=== PATIENT | female | born 2000 | race Asian ===

== ENCOUNTER 2023-12-12 20:47 | Emergency (ER) | payer SELFPAY ==
[~2023-12-12] VITALS: Ht 149.9 cm; Wt 40.8 kg
[2023-12-12 21:31] VITALS: TEMP 98.6
[2023-12-12] MEDS ORDERED: ONDANSETRON 4 MG TAB.RAPDIS ONE (22:13)
[2023-12-12] MEDS ORDERED: MAG HYDROX/AL HYDROX/SIMETH 30 ML UDC ONE (22:13)
[2023-12-12] MEDS ORDERED: FAMOTIDINE (20 MG) 20 MG TABLET ONE (22:13)
[2023-12-12] MEDS: FAMOTIDINE (20 MG) 20 MG TABLET PO ONE (22:17)
[2023-12-12] MEDS: MAG HYDROX/AL HYDROX/SIMETH 30 ML UDC PO ONE (22:18)
[2023-12-12] MEDS: ONDANSETRON 4 MG TAB.RAPDIS SL ONE (22:20)
[2023-12-12 22:21] LABS: APPEARANCE,URINE SLIGHTLY CLOUDY (CLEAR); BILIRUBIN,URINE 2+ (NEGATIVE); BLOOD, URINE NEGATIVE Ery/uL (NEGATIVE); COLOR,URINE YELLOW (YELLOW); KETONES,URINE 2+ mg/dL (NEGATIVE); LEUKOCYTE ESTERASE ,URINE NEGATIVE (NEGATIVE); NITRITE, URINE NEGATIVE (NEGATIVE); PH,URINE 6.5 (5.0-8.0); PROTEIN,URINE 1+ mg/dl (NEGATIVE); UGLUCOSE NEGATIVE (NEGATIVE)
[2023-12-12 22:21] LABS: BASOPHILS # (AUTO) 0.1 K/uL (0.0-0.2); BASOPHILS % (AUTO) 0.8 % (0.0-2.0); EOSINOPHILS % (AUTO) 0.1 % (0.0-6.0); HEMATOCRIT 42 % (33-45); HEMOGLOBIN 13.8 g/dL (11.5-14.8); LYMPHOCYTES % (AUTO) 9.2 % (20.0-44.0); MEAN CORPUSCULAR HEMOGLOBIN 28 PG (26.0-33.0); MEAN CORPUSCULAR HGB CONC 33 g/dl (31.0-36.0); MEAN CORPUSCULAR VOLUME 86 fL (82-100); MONOCYTES # (AUTO) 0.9 K/uL (0.1-1.30); MONOCYTES % (AUTO) 8.6 % (2.0-12.0); NEUTROPHILS # (AUTO) 8.4 K/uL (1.8-8.9); NEUTROPHILS % (AUTO) 81.3 % (43.0-81.0); PLATELET COUNT (AUTO) 381 K/uL (150-450); RED BLOOD CELL COUNT(AUTO) 4.93 MIL/uL (4.0-5.2); RED CELL DISTRIBUTION WIDTH 15.2 % (11.5-15.0); WHITE BLOOD COUNT (AUTO) 10.3 K/uL (4.3-11.0)
[2023-12-12 22:30] LABS: ADD URINE CULTURE NO; BACTERIA,URINE RARE /HPF (None Seen); RBC,URINE 0-2 /HPF (0-2); WBC,URINE 0-2 /HPF (0-3)
[2023-12-12 22:31] LABS: MUCUS,URINE Many /LPF (None Seen); PREGNANCY TEST URINE QUAL NEGATIVE (NEGATIVE)
[2023-12-12 22:39] LABS: ALBUMIN 4.1 g/dL (3.4-5.0); BILIRUBIN,DIRECT 0.2 mg/dL (0.0-0.2); BILIRUBIN,TOTAL 1.1 mg/dL (0.2-1.0); CALCIUM, SERUM 9.1 mg/dL (8.5-10.1); CREATININE 0.8 mg/dL (0.6-1.3); TOTAL PROTEIN, SERUM 8.6 g/dL (6.4-8.2)
[2023-12-12 23:26] VITALS: BP 129/70; O2SAT 99
[2023-12-12] MEDS ORDERED: ONDA4TAB5 PO (23:29)
[2023-12-12] MEDS ORDERED: FAMO20TA8 PO (23:29)
[2023-12-12] MEDS ORDERED: POTASSIUM CHLORIDE 20 MEQ TAB.PRT.SR PO ONE (23:30)
[2023-12-12] MEDS: POTASSIUM CHLORIDE 20 MEQ TAB.PRT.SR PO ONE (23:30)
== END 2023-12-12 23:41 | disposition home or self-care (01) ==
LOC: ER 20:50
DX: K29.70 Gastritis, unspecified, without bleeding (principal); R10.2 Pelvic and perineal pain; K21.9 Gastro-esophageal reflux disease without esophagitis
CPT/HCPCS: 99284; 85025; 80048; 83690; 80076; 84703; 81001; 36415; Q0162